=== PATIENT | female | born 1950 | race African-American/Black ===

== ENCOUNTER 2023-03-30 14:01 | Inpatient (IN) | payer OTHER, MEDICAID ==
[~2023-03-30] VITALS: Ht 167.6 cm; Wt 97.2 kg
[2023-03-30] MEDS ORDERED: SODIUM CHLORIDE 0.9% 1,000 ML IV SCH (19:45)
[2023-03-30] MEDS ORDERED: ACETAMINOPHEN 325 MG TAB PO PRN (19:45)
[2023-03-30 20:39] LABS: LDL Cholesterol 81 mg/dL (< 100); Triglycerides 76 mg/dL (< 150)
[2023-03-30 20:41] LABS: Cholesterol 158 mg/dL (< 200); HDL Cholesterol 58 mg/dL (40-59)
[2023-03-30] MEDS ORDERED: MET50T PO (21:08)
[2023-03-30] MEDS ORDERED: PRAV20TA3 PO (21:08)
[2023-03-30] MEDS ORDERED: OMEP1CAP70 PO (21:08)
[2023-03-30] MEDS ORDERED: GAB100C PO (21:08)
[2023-03-30] MEDS ORDERED: ENAL1TAB47 PO (21:08)
[2023-03-30] MEDS ORDERED: AMLO1TAB23 PO (21:08)
[2023-03-30] MEDS ORDERED: HYDR-4611 PO (21:08)
[2023-03-30] MEDS ORDERED: METF-370 PO (21:08)
[2023-03-30] MEDS ORDERED: DEXTROSE (50%) 50ML SYRG IV PRN (21:15)
[2023-03-30 21:48] LABS: Basophils # (auto) 0 10 ^3/uL (0-0.2); Hemoglobin 10.8 g/dL (12.2-16.2); Neutrophils # (auto) 3.7 10 ^3/uL (1.6-8.6)
[2023-03-30 21:50] LABS: Basophils % (auto) 0.4 % (0.0-2.0); Eosinophils # (auto) 0.1 10 ^3/uL (0-0.8); Hematocrit 34.4 % (36.0-46.0); Lymphocytes # (auto) 2.9 10 ^3/uL (0.4-5.4); Lymphocytes % (auto) 39.3 % (10.0-50.0); Mean Corpuscular Hemoglobin 25.3 pg (28.0-32.0); Mean Corpuscular Hgb Conc. 31.5 g/dL (32.0-36.0); Mean Corpuscular Volume 80.3 fL (80.0-100.0); Monocytes # (auto) 0.7 10 ^3/uL (0-1.3); Neutrophils % (auto) 49.3 % (37.0-80.0); Nucleated Red Blood Cells % 0.1 %; Red Blood Cells 4.28 10^6/uL (4.0-5.20); Red Cell Distribution Width 13.4 % (11.8-14.3); White Blood Cell 7.5 10^3/uL (4.4-10.8)
[2023-03-30 22:05] LABS: Alanine Aminotransferase 13 U/L (7-40); Albumin 3.9 g/dL (3.2-4.8); Alkaline Phosphatase 70 U/L (46-116); Anion Gap 8 (5-15); Aspartate Aminotransferase 10 U/L (13-40); BUN/Creatinine Ratio 13.5 (10.0-20.0); Bilirubin, Total 0.4 mg/dL (0.2-1.0); Blood Urea Nitrogen 10 mg/dL (9-23); Calcium 9.2 mg/dL (8.5-10.1); Carbon Dioxide 24 mmol/L (20-30); Chloride 106 mmol/L (98-107); Glucose 102 mg/dL (74-106); Potassium 4.3 mmol/L (3.5-5.1); Sodium 138 mmol/L (136-145)
[2023-03-31] VITALS (11 sets, daily range): BP systolic 131–157; BP diastolic 48–100; PULSE 68–75; RESP 15–19; TEMP 97.8–98.2; O2SAT 90–96
[2023-03-31] MEDS: ACCU-CHEK COMFORT CURVE STRIP VI SCH ×5 (00:43→22:23)
[2023-03-31] MEDS: HYDROcodone-ACET 10/325MG TAB PO PRN ×3 (00:52→13:15)
[2023-03-31] MEDS: METOPROLOL TARTRATE 50 MG TAB PO SCH ×3 (00:54→22:23)
[2023-03-31] MEDS: GABAPENTIN 100 MG CAP PO SCH ×3 (00:54→22:21)
[2023-03-31] MEDS: ATORVASTATIN 20 MG TAB PO SCH ×2 (00:55→22:21)
[2023-03-31] MEDS: OMEPRAZOLE 40MG/20ML ORAL SUSP PO SCH ×2 (00:55→10:39)
[2023-03-31] MEDS: InsuLIN REG 1unit/0.01ml Soln (100units/ml) SC SCH ×5 (00:55→22:00)
[2023-03-31 07:09] LABS: Basophils # (auto) 0 10 ^3/uL (0-0.2); Eosinophils # (auto) 0.1 10 ^3/uL (0-0.8); White Blood Cell 7.1 10^3/uL (4.4-10.8)
[2023-03-31 07:12] LABS: Basophils % (auto) 0.5 % (0.0-2.0); Hematocrit 31.7 % (36.0-46.0); Hemoglobin 10.2 g/dL (12.2-16.2); Lymphocytes # (auto) 2.7 10 ^3/uL (0.4-5.4); Lymphocytes % (auto) 38.8 % (10.0-50.0); Mean Corpuscular Hemoglobin 25.6 pg (28.0-32.0); Mean Corpuscular Hgb Conc. 32.1 g/dL (32.0-36.0); Monocytes # (auto) 0.7 10 ^3/uL (0-1.3); Monocytes % (auto) 9.4 % (0.0-12.0); Neutrophils # (auto) 3.5 10 ^3/uL (1.6-8.6); Neutrophils % (auto) 50.3 % (37.0-80.0); Red Blood Cells 3.96 10^6/uL (4.0-5.20); Red Cell Distribution Width 13.9 % (11.8-14.3)
[2023-03-31 07:16] LABS: Urine WBC None Seen /hpf (0 - 5)
[2023-03-31 07:28] LABS: Albumin 3.6 g/dL (3.2-4.8); Alkaline Phosphatase 60 U/L (46-116); Anion Gap 7 (5-15); Aspartate Aminotransferase 9 U/L (13-40); BUN/Creatinine Ratio 12.9 (10.0-20.0); Bilirubin, Total 0.4 mg/dL (0.2-1.0); Blood Urea Nitrogen 8 mg/dL (9-23); Calcium 8.2 mg/dL (8.7-10.4); Carbon Dioxide 23 mmol/L (20-30); Chloride 108 mmol/L (98-107); Glucose 90 mg/dL (74-106); Sodium 138 mmol/L (136-145); Total Protein 5.8 g/dL (5.7-8.2)
[2023-03-31 07:30] LABS: Alanine Aminotransferase 9 U/L (7-40)
[2023-03-31 07:31] LABS: Urine Bacteria FEW /hpf (None Seen); Urine Blood Negative /uL (Negative); Urine Clarity Clear (Clear); Urine Protein, UAD Negative (Negative); Urine Specific Gravity 1.018 (1.001-1.035); Urine Urobilinogen Normal (Negative)
[2023-03-31 07:34] LABS: Urine Color Straw (Yellow)
[2023-03-31] MEDS: ENALAPRIL MALEATE 10 MG TAB PO SCH (10:38)
[2023-03-31] MEDS: amLODIPine BESYLATE 5 MG TAB PO SCH (10:40)
[2023-03-31] MEDS: ENOXAPARIN SOD 40 MG/0.4 ML SYRINGE SC SCH (10:40)
[2023-03-31] MEDS ORDERED: ACETAMINOPHEN 500 MG TAB PO PRN (15:00)
[2023-03-31] MEDS ORDERED: IPRATROPIUM BROM 0.5 MG/2.5ML INH SOL NEB PRN (15:00)
[2023-03-31] MEDS ORDERED: ALBUTEROL SULF 2.5 MG/0.5ML(0.5%) NEB SOLN NEB PRN (15:00)
[2023-03-31] MEDS ORDERED: ONDANSETRON HCL 4 MG/2 ML VIAL IV PRN (15:00)
[2023-03-31] MEDS ORDERED: DOCUSATE SOD 100 MG CAP PO PRN (15:00)
[2023-03-31] MEDS: cefTRIAXone 1GM/50ML D5W 50 ML IV SCH (15:30)
[2023-03-31] MEDS: CELECOXIB 100 MG CAP PO SCH (22:21)
[2023-03-31] MEDS: OMEPRAZOLE-SOD BICARB 20 MG POWDER PO SCH (22:23)
[2023-04-01] VITALS (7 sets, daily range): BP systolic 143–158; BP diastolic 64–84; PULSE 62–67; RESP 18–20; TEMP 97.8–98.4; O2SAT 95–98
[2023-04-01] MEDS: HYDROcodone-ACET 5/325MG TAB PO PRN ×2 (05:49→15:30)
[2023-04-01] MEDS: ACCU-CHEK COMFORT CURVE STRIP VI SCH ×3 (05:51→17:00)
[2023-04-01] MEDS: InsuLIN REG 1unit/0.01ml Soln (100units/ml) SC SCH ×3 (05:55→17:00)
[2023-04-01] MEDS: METOPROLOL TARTRATE 50 MG TAB PO SCH (10:37)
[2023-04-01] MEDS: CELECOXIB 100 MG CAP PO SCH (10:37)
[2023-04-01] MEDS: cefTRIAXone 1GM/50ML D5W 50 ML IV SCH (10:37)
[2023-04-01] MEDS: GABAPENTIN 100 MG CAP PO SCH (10:38)
[2023-04-01] MEDS: ENALAPRIL MALEATE 10 MG TAB PO SCH (10:40)
[2023-04-01] MEDS: amLODIPine BESYLATE 5 MG TAB PO SCH (10:40)
[2023-04-01] MEDS: ENOXAPARIN SOD 40 MG/0.4 ML SYRINGE SC SCH (10:42)
[2023-04-01] MEDS ORDERED: CEL100T PO (10:53)
[2023-04-01] MEDS: OMEPRAZOLE-SOD BICARB 20 MG POWDER PO SCH (12:07)
== END 2023-04-01 18:43 | disposition home or self-care (01) | DRG 605 ==
LOC: EDBD 14:01 → EDUNIT# 14:01 → ER 14:01 → OVERFLOW 19:44 → CENTRAL 03-31 12:28
PROVIDERS: ADMIT Nurse Practitioner Family; ATTEND Nurse Practitioner Acute Care
DX: S40.012A Contusion of left shoulder, initial encounter (principal); S70.02XA Contusion of left hip, initial encounter; E78.5 Hyperlipidemia, unspecified; E66.9 Obesity, unspecified; E11.9 Type 2 diabetes mellitus without complications; I10 Essential (primary) hypertension; J40 Bronchitis, not specified as acute or chronic; W01.0XXA Fall on same level from slipping, tripping and stumbling without subsequent striking against object, initial encounter; Y93.89 Activity, other specified; Y92.89 Other specified places as the place of occurrence of the external cause; Y99.8 Other external cause status; Z68.34 Body mass index [BMI] 34.0-34.9, adult
CPT/HCPCS: 36415; 70450; 71250; 72125; 72131; 73030; 73560; 73700; 74176; 80053; 80061; 81001; 82962; 84443; 85025; 93005; 94640; 97163; G0378; J1815